=== PATIENT | female | born 1995 ===

== ENCOUNTER 2017-11-11 17:14 | Emergency (ER) | payer OTHER ==
--- NOTE | 2017-11-11 19:27 | UC ---
Eye Complaint HPI - HPI Summary HPI Summary: Right ear pain for a few days. It has improved but there is still some muddled hearing. No fever. She has allergies during the change of seasons. She also has anxiety and things are fairly well and she is seeing student [employer] but wants a second opinion. - History of Current Complaint Chief Complaint: UCEar Stated Complaint: (R) EAR COMPLAINT Time Seen by Provider: 11/11/17 19:07 Hx Obtained From: Patient Hx Last Menstrual Period: 10/21/17 Onset/Duration: Gradual Onset, Lasting Days Timing: Constant Severity Initially: Severe Severity Currently: Mild Pain Intensity: 5 Aggravating Factor(s): Nothing Alleviating Factor(s): Nothing Associated Signs And Symptoms: Negative: Photophobia, Vision Impairment Bilateral, Vision Impairment Right, Vision Impairment Left, Fever, Swelling - Allergies/Home Medications Allergies/Adverse Reactions: Allergies Allergy/AdvReac Type Severity Reaction Status Date / Time No Known Allergies Allergy Verified 11/11/17 18:58 Home Medications: Home Medications NK [No Home Medications Reported] 11/11/17 [History Confirmed 11/11/17] PMH/Surg Hx/FS Hx/Imm Hx Previously Healthy: No - anxiety. - Surgical History Surgical History: Yes Surgery Procedure, Year, and Place: Tonsils - Family History Known Family History: Positive: Other - NO related family history. - Social History Occupation: Student Alcohol Use: Occasionally Substance Use Type: None Smoking Status (MU): Never Smoked Tobacco Review of Systems ENT: Ear Ache Psychological: Anxious All Other Systems Reviewed And Are Negative: Yes Physical Exam Triage Information Reviewed: Yes Appearance: Well-Appearing, No Pain Distress, Well-Nourished Vital Signs: Initial Vital Signs Temp 98.7 F 11/11/17 18:58 Pulse 58 11/11/17 18:58 Resp 16 11/11/17 18:58 BP 103/73 11/11/17 18:58 Pulse Ox 96 11/11/17 18:58 Vital Signs Reviewed: Yes Eyes: Positive: Conjunctiva Clear ENT: Positive: Normal ENT inspection, Pharynx normal, TM bulging, Uvula midline. Negative: TM dull, TM red, Tonsillar swelling, Tonsillar exudate, Trismus, Sinus tenderness Neck: Positive: Supple, Nontender, No Lymphadenopathy Respiratory: Positive: Lungs clear, Normal breath sounds, No respiratory distress, No accessory muscle use. Negative: Respiratory distress, Decreased breath sounds, Accessory muscle use, Crackles, Rhonchi, Stridor, Wheezing Cardiovascular: Positive: No Murmur, Pulses Normal Abdomen Description: Positive: No Organomegaly, Soft. Negative: Distended, Guarding Musculoskeletal: Positive: Strength Intact, ROM Intact, No Edema Neurological: Positive: Alert, Muscle Tone Normal. Negative: Fatigued Psychological: Positive: Age Appropriate Behavior Skin: Negative: rashes Eye Complaint Course/Dx - Differential Dx/Diagnosis Provider Diagnoses: right ear pressure and congestion. anxiety Discharge - Sign-Out/Discharge Documenting (check all that apply): Discharge - Discharge Plan Condition: Good Disposition: HOME Patient Education Materials: Earache (ED) Referrals: No Primary Care Phys,NOPCP [Primary Care Provider] - Additional Instructions: [facility] is [phone] and [facility] [phone] Use OTC decongestants such as mucinex d for one week then add flonase twice a day each nostril if not better. Use this nasal spray for 2-3 weeks. - Billing Disposition and Condition Condition: GOOD Disposition: HOME
== END 2017-11-11 19:25 | disposition home or self-care (01) ==
LOC: UCCORT 17:14
DX: H93.8X1 Other specified disorders of right ear (principal); R09.81 Nasal congestion; F41.9 Anxiety disorder, unspecified
CPT/HCPCS: 99201; G0463